=== PATIENT | male | born 1975 | race Hispanic/Latino ===

== ENCOUNTER 2016-09-09 19:24 | Inpatient (IN) | payer SELFPAY ==
[~2016-09-09] VITALS: Ht 162.6 cm; Wt 61.7 kg
[2016-09-09 19:29] VITALS: BP 124/85; PULSE 48; RESP 16; O2SAT 97
--- NOTE | 2016-09-09 20:55 | DRSVH ---
PROCEDURE: X-RAY CHEST ONE VIEW, PORTABLE ([id number]) INDICATIONS: CHEST PAIN TECHNIQUE: One view of the chest was acquired. COMPARISON: None. FINDINGS: Surgical changes and devices: None. Lungs and pleura: No pleural effusions or pneumothorax. Lungs are clear. Mediastinum: Mediastinal contours appear normal. Heart size is normal. Bones and chest wall: No suspicious bony lesions. Overlying soft tissues appear unremarkable. IMPRESSION: No acute pulmonary process. Dictated by: Nava Marrero M.D. on 09/09/2016 at 20:53 Approved by: Nava Marrero M.D. on 09/09/2016 at 20:53
--- NOTE | 2016-09-09 21:03 | ED.REPORT ---
HPI-Chest Pain 40 and Over Date of Service Sep 09, 2016 ED Provider: Jon Daly MD Pt is a generally healthy 40 y/o male presenting to the ED c/o intermittent SOB onset 3 days ago. The patient states he has been experiencing rapid irregular palpitations which have been persistent since 10:00 today which he describes as his heart beating 5 times quickly and then skipping a beat. During these episodes, he experiences shortness of breath and jaw pain. He experienced similar symptoms previously 1.5 months ago which spontaneously resolved after eating and resting. His only prior medical problem was a severe episode of epistaxis which occurred 20 years ago. He denies taking any prescription or OTC medications. Pt denies alcohol or drug use. Nursing Notes Stated Complaint: HEART PROBLEMS Chief Complaint: Chest Pain Nursing Notes Reviewed: Yes (pic5, meds not reconciled) Allergies: Coded Allergies: No Known Allergies (Unverified , 09/09/16) No Active Prescriptions or Reported Meds General Time Seen by MD: 21:02 Chief Complaint Shortness of breath Hx Obtained From: Patient, Certified Dental Assistant Arrived By: Walk-in Sudden in Onset?: No Onset Occurred: 3 days ago Symptom Duration: Intermittent Location: : Jaw Quality: Painful Severity: Current: Mild Severity: Maximum: Mild Similar Sx Previous: Yes Past Medical History Past Medical History Hx irregular palpitations Denies Past Surgical History Denies Smoking History Unknown if Ever Smoker Social History Alcohol Use: Denies alcohol use Drug Use: Denies drug use Ambulatory Status Independent Review of Systems Review of Systems Note: + jaw pain Constitutional: Denies: Chills, Fever Respiratory: Reports: Shortness of breath, Denies: Non-productive cough Cardiovascular: Reports: Palpitations, Denies: Chest pain GI: Denies: Abdominal pain, Nausea, Vomiting Complete sys rev & neg: except as marked. Physical Exam Initial Vital Signs Vital Signs (First) Date Time Temp Pulse Resp B/P Pulse Ox O2 Delivery O2 Flow Rate FiO2 09/09/16 19:29 36.5 48 16 124/85 97 Room Air 09/09/16 22:47 2 Initial VS: Reviewed, Vital signs normal Head / Eyes: Atraumatic, Normocephalic, PERRL ENT: Mucous membranes moist, Conjunctiva normal, No scleral icterus Neck: Supple, Full range of motion Extremities: Vascular intact, Neuro intact, No swelling Skin: Warm, Dry, No cyanosis Neurologic: Alert, Oriented, Nonfocal Psychiatric: Mood/affect normal, Behavior normal, Normal thought content General/Constitutional: Awake, Alert, Cooperative, Not toxic appearing Respiratory / Chest: Breath sounds NL, Breath sounds = bilat, No respiratory distress, No rales, No rhonchi, No wheezing Cardiovascular: Heart sounds NL, No gallop, No murmurs, No rubs, Cap refill not delayed, Peripheral circulation NL, Pulses = bilaterally Recurrent bouts of narrow complex tachycardia which do not cause near-syncope Abdomen: Atraumatic, Soft, Non-tender Interpretation & Diagnostics Lab Results Interpretation Result Diagram: 09/09/16 2100 09/09/16 2100 Test 09/09/16 21:00 White Blood Count 9.8th/mm3 (3.8-10.1) Red Blood Count 5.23mil/mm3 (4.40-5.80) Hemoglobin 16.2g/dL (13.8-17.2) Hematocrit 45.9% (41.0-50.0) Mean Corpuscular Volume 87.8fL (81-100) Mean Corpuscular Hemoglobin 31.0pg (27.0-35.0) Mean Corpuscular Hemoglobin Concent 35.3% (32.0-37.0) Red Cell Distribution Width 13.1% (12.3-15.4) Platelet Count 174bil/L (150-400) Neutrophils (%) (Auto) 70.5% (40-74) Lymphocytes (%) (Auto) 17.4% (14-46) Monocytes (%) (Auto) 9.9% (4-12) Eosinophils (%) (Auto) 1.7% (0-5) Basophils (%) (Auto) 0.4% (0-3) Sodium Level 140mEq/L (134-144) Potassium Level 3.8mEq/L (3.5-5.2) Chloride Level 104mEq/L (97-108) Carbon Dioxide Level 20mmol/L (18-29) Blood Urea Nitrogen 23mg/dL (6-24) Creatinine 0.90mg/dL (0.76-1.27) Estimat Glomerular Filtration Rate 99mL/min (>59) Glucose Level 107mg/dL (60-99) Calcium Level 9.0mg/dL (8.5-10.1) Magnesium Level 2.0mg/dL (1.6-2.6) Total Bilirubin 0.8mg/dL (0.0-1.2) Aspartate Amino Transf (AST/SGOT) 59U/L (0-50) Alanine Aminotransferase (ALT/SGPT) 50U/L (0-44) Alkaline Phosphatase 66U/L (25-150) Troponin T 0.010ug/L (0.0-0.011) Total Protein 7.4g/dL (6.4-8.4) Albumin 4.4g/dL (3.4-5.0) Thyroid Stimulating Hormone (TSH) 4.500uIU/mL (0.450-4.500) Hold Gomez Top Tube Received (Received) Lab Results Interpretation: CBC normal CMP normal TSH normal Troponin #1 negative ECG Interpretation ECG Interpretation: Underlying sinus rhythm with frequent episodes of narrow complex tachycardia, non-sustained, which appears to be atrial tachycardia at rate of 150 Also see rhythm strip which demonstrates dysrhythmias with more clarity. There also appears to be LVH with repolarization abnormality No prior EKG available for comparison Time: 20:37 Interpreted by: ED physician, Marketing Proposal Specialist Normal ECG Interpretation: No acute ischemic changes X-Ray Chest Interpretation Chest Xray Interpretation: IMPRESSION: No acute pulmonary process. Dictated by: Nava Marrero M.D. on 09/09/2016 at 20:53 Approved by: Nava Marrero M.D. on 09/09/2016 at 20:53 View: Portable, 1 view Interpretation / Wet Read by: Interpret - Radiologist Re-Eval/Medical Decision Med Decision/Clinical Course This= a 40-year-old male presents with a complaint of chest pain and palpitations. Denies previous medical history, is not on any medications, over- the-counter medications, and has no previous surgeries. He reports occasional alcohol, but denies smoking or recreational drugs, and reports that about a month and half ago he had a couple episodes of palpitations and chest discomfort , but then resolved-over the past 3 days they have returned with a vengeance. He has had continuous episodes of chest discomfort, severe palpitations and feels his heart skipping, he feels lightheaded. He denies shortness of breath, diaphoresis, nausea or vomiting. He has no previous history of DVT or PE, no leg swelling, and no DVT or PE risk factors. On arrival the patient's Continued have ongoing symptoms, and this matches frequent dysrhythmias identified on telemetry. He has bursts of narrow complex tachycardia at a rate of around 150, suspicious for an atrial tachycardia (?A flutter given HR 150) and the patient is quite symptomatic with this. I do not appreciate any murmurs, he has no jugular venous distention, no clinical exam findings of naida heart failure evident. He had several EKGs, and a lengthy rhythm strip-please see the rhythm strip visit demonstrates the recurrent nature of these bursts of tachycardia quite well. All these were reviewed with the manager security and safety Dr. Snow. Laboratories are normal with normal electrolytes, TSH as is the CXR. Patient received a dose of metoprolol, almost no effect. On discussion with cardiology who recommended transitioning to diltiazem for rate control- recommended admission, with a.m. cardiology consultation and and obtaining an echocardiogram. Source of Hx: Old records (none in EMR) Time of Eval: 22:12 Re-Evaluation/Progress Note: Pt rechecked. Informed pt of need for admission. Pt understands and agrees with plan for admission. All questions addressed. Time of Eval: 23:26 Re-Evaluation/Progress Note: Patient began to experience palpitations once again after a period of relief. Repeat EKG indicates sinus rhythm rate 77 with LVH with strain and then another bout of atrial tachycardia. Consultation #1: Referral / Consult Name: Guerrero Snow MD Consulted With: Cardiology Call Returned at: 22:04 Title Department Manager: Will see patient, Agrees with eval, Agrees with plan Note: Reviewed EKG. Recommends diltiazem if BP allows and admit. Consultation #2: Referral / Consult Name: Lindsay Bailey DO Consulted With: Hospitalist Call Returned at: 22:50 Title Department Manager: Will see patient, Agrees with eval, Agrees with plan, Accepts admit Differential Diagnosis: Positive: Dysrhythmia, Negative: Acute coronary syndrome, Acute myocardial infarct, Gun shot wound chest, Pleurisy, Pneumomediastinum, Pneumonia, Pneumothorax, Pulmonary edema, Pulmonary embolism, Rib fracture, Stab wound chest Counseled Regarding: Diagnosis, Lab results, Need for admission Discharge & Departure Primary Impression: Paroxysmal atrial tachycardia Additional Impression: LVH (left ventricular hypertrophy) Disposition: ADMITTED TO HOSPITAL Discharge Condition All VS Reviewed: Yes Condition: Stable Crit Care Except Billable Proc Time Spent: 30-74 minutes Services Performed: Patient management by me, Time spent at bedside, Reviewing test results, Reviewing imaging, Discussing patient care, Documentation in record Critical Care Notes: Management of recurrent tachydysrhythmia Dane Attestation Portions of this note were transcribed by Yousif Ramon. I, Dr. Daly, personally performed the history, physical exam and medical decision-making; I reviewed and confirmed the accuracy of the information in the transcribed note. Signed by Dane Landon, 09/09/162129 Jon Daly MD Sep 09, 2016 21:03 YOUSIF RAMON Sep 09, 2016 21:15
[2016-09-09 21:06] LABS: BASOPHILS % (AUTO) 0.4 % (0-3); EOSINOPHILS % (AUTO) 1.7 % (0-5); MONOCYTES % (AUTO) 9.9 % (4-12); Mean Corpuscular Volume 87.8 fL (81-100); NEUTROPHILS % (AUTO) 70.5 % (40-74); Platelet Count 174 bil/L (150-400)
[2016-09-09] MEDS ORDERED: MeTOProlol 1 mg/mL 5 mL Inj IVPUSH ONE (21:20)
[2016-09-09 21:25] VITALS: BP 124/77; PULSE 109; RESP 19; O2SAT 99
[2016-09-09 21:38] LABS: TROPONIN T 0.01 ug/L (0.0-0.011)
[2016-09-09] MEDS ORDERED: 0.9% Sodium Chloride 1,000 ML IV ONE (22:05)
[2016-09-09] MEDS ORDERED: Diltiazem 5 mg/mL 5 mL Inj IVPUSH ONE (22:25)
[2016-09-09 22:34] VITALS: BP 119/76; PULSE 110; RESP 29; O2SAT 95
[2016-09-09 22:47] VITALS: BP 106/68; PULSE 76; RESP 17; O2SAT 96
[2016-09-09] MEDS ORDERED: Ondansetron 2 mg/mL 2 mL Inj IVPUSH PRN (23:30)
[2016-09-09] MEDS ORDERED: Alum-Mag Hydrox-Simeth 30 mL Suspension PO PRN (23:30)
[2016-09-09 23:57] VITALS: BP 106/68; PULSE 76; RESP 17; O2SAT 96
[2016-09-10] VITALS (9 sets, daily range): BP systolic 91–143; BP diastolic 55–80; PULSE 64–107; RESP 16–24; O2SAT 93–99
--- NOTE | 2016-09-10 00:22 | NUR ---
Admit Pt admitted from ED at 0000. A/Ox4 and independent with transfers. Urine sample still needed.
--- NOTE | 2016-09-10 02:04 | PCM.HPMED ---
Subjective Date of Service Sep 10, 2016 Primary Provider: Admitting Physician: Lindsay Bailey DO Primary Care Physician: Ameya Attending Physician: Lindsay Bailey DO Admit Status: From the Emergency Department Chief Complaint: Heart racing History of Present Illness: Willie Cox is a 40-year-old Green[place]ic-speaking man who presents with to the ED with 3 days of heart racing and shortness of breath. Ipad customs investigator is used to obtain history. Patient states he had one prior episode of this approximately one month ago that resolved on its own after 3-4 hours. He anticipated that this episode would also resolve on its own, but as it has not resolved in the last 72 hours he was advised by his coworkers to present to the emergency department. Patient denies any trigger to this episode although he was working outside in the field when it started. He states he was still able to complete his tasks but felt more fatigued and short of breath. This episode is slightly different than his previous one a month ago in that he has less pain and tightness and instead feels warmer racing sensation. He states that the previous episode the pain radiated to his left jaw and was associated with nausea of which are absent currently. Patient denies any excessive caffeine use and drinks only a single cup of coffee in the morning. He has never smoked , used marijuana, or other recreational drugs. He occasionally will have a beer with a meal but not to any excess. No personal or family history of cardiac disease. Patient takes no medications including [id number] medications. He has never been hospitalized or had a prior echocardiogram. On presentation to the ED patient's vitals: temperature 36.5, pulse 109, respiratory rate 19 saturating 99% on room air, blood pressure 124/77. Initial labs including CBC with differential, CMP, TSH, and troponin were unremarkable. EKG revealed normal sinus rhythm with frequent episodes of narrow complex tachycardia. Patient was given metoprolol with no improvement but had some moderate relief with diltiazem which was recommended by Dr. Snow, talent engineer. Dr. Snow recommended an echocardiogram be obtained in the morning and also agreed to see the patient. Review of Systems: Comprehensive review of systems was conducted with the patient and found to be negative except as noted above in HPI. Allergies Coded Allergies: No Known Allergies (Unverified , 09/09/16) Home Medications None PMH None Surgical History None Family History Father and mother live in [place] and are healthy to the best of his knowledge. No family history of cardiac disease or cancer. Social History Occupation: field interviewer Hx Alcohol Use: Yes (occasionally) Hx Substance Use: No Hx Tobacco Use: No Smoking Status: Never Smoker Living Arrangement: with Family Exam Vital Signs Vital Sign - Last Date Time Temp Pulse Resp B/P Pulse Ox O2 Delivery O2 Flow Rate FiO2 09/10/16 00:08 37.2 81 16 135/80 93 Room Air 09/09/16 23:57 2 Exam General: No acute distress, well-developed, well-nourished, appropriately interactive HEENT: Normocephalic, atraumatic. External ears without defect. Pupils equal, round, and reactive to light and accommodation. Anicteric sclerae, moist conjunctivae, and no lid lag. Oropharynx free of erythema and cobble stoning with moist mucosa. Neck: Supple with full range of motion. No jugular venous distension. No bruits. No lymphadenopathy or thyromegaly. Cardiovascular: Regular rate and rhythm with no murmurs, rubs, or gallops appreciated Pulmonary: Clear to auscultation bilaterally with no crackles, wheezes, or rhonchi. Normal respiratory effort with no use of accessory muscles. Abdomen: Bowel tones present. Soft, nontender, nondistended. No hepatosplenomegaly or masses appreciated. Extremities: No clubbing, cyanosis, edema, or lymphadenopathy appreciated. Skin: Normal temperature, turgor, and texture; no rash, ulcers, or subcutaneous nodules appreciated. Neurological: Cranial nerves grossly intact. Normal muscle strength, tone, and bulk. Reflexes, coordination, and sensory function within normal limits. No known gait impairment. Psychiatric: Normal mood and affect. Alert and oriented to person, place, and time. Lab and Diagnostics Result Diagram: 09/09/16 2100 09/09/16 2100 X-Rays, CTs and MRIs X-RAY CHEST ONE VIEW, PORTABLE ([id number]) IMPRESSION: No acute pulmonary process. Dictated by: Nava Marrero M.D. on 09/09/2016 at 20:53 Approved by: Nava Marrero M.D. on 09/09/2016 at 20:53 12-lead ECG Interpretation by ED physician and talent engineer : Underlying sinus rhythm with frequent episodes of narrow complex tachycardia, non-sustained, which appears to be atrial tachycardia at rate of 150. No acute ischemic changes. Also see rhythm strip which demonstrates dysrhythmias with more clarity. There also appears to be LVH with repolarization abnormality. No prior EKG available for comparison. Assessment & Plan Willie Cox is a 40-year-old [place]ic-speaking man who presents with to the ED with 3 days of heart racing and shortness of breath. Admitted for further cardiac workup. Narrow complex tachycardia possibly atrial flutter, present on admission, active. Scrap Preparer, Dr. Snow, reviewed several EKGs and a lengthy rhythm strip with the ER physician, Dr. Daly. Dr. Snow recommends diltiazem as needed, echocardiogram, and agrees to see the patient in the morning. - Diltiazem 60 mg PO along with 20 mg IV push given in the ED. - Diltiazem 20 mg IV push for sustained tachycardia. - Metoprolol given initially with no effect. - Echocardiogram ordered for the morning. - Monitor showing continuous telemetry. - Cardiology consulted. Appreciate time and recommendations. Aminotransferase elevation, present on admission, unknown chronicity. Patient denies any history of hepatitis or other liver pathology. Patient does admit to drinking alcohol socially would not in excess. - Repeat CMP in the morning. - Possible need for outpatient workup. PRN Medications - Bowel regimen as needed - Antiemetic as needed Patient is admitted under inpatient status with expected length of stay greater than 2 midnights due to severity of presenting symptoms, risk of adverse event, and complexity of treatment plan. Pain Evaluation: Adequate Pain Control GI Prophylaxis: Not indicated VTE Prophylaxis: Sub-Q Heparin (Unfractionated), SCDs Resuscitation Status: CPR: Attempt Resuscitation Attending Statement The patient was seen and examined together with house staff on 09/10/2016 and I agree with the history, exam and plan as outlined in the note above. CONCEPCIÓN BRIDGES DO Sep 10, 2016 02:04 Lindsay aBiley DO Sep 10, 2016 05:37
[2016-09-10 02:05] LABS: APPEARANCE,URINE CLEAR (CLEAR,HAZY); COLOR,URINE YELLOW (YELLOW); OCCULT BLOOD,URINE NEGATIVE (NEGATIVE); PH,URINE 6.5 (5.0-8.0); UROBILINOGEN,URINE NORMAL (NORMAL)
[2016-09-10] MEDS ORDERED: Alum-Mag Hydrox-Simeth 30 mL Suspension PO PRN (02:10)
[2016-09-10] MEDS ORDERED: Ondansetron 2 mg/mL 2 mL Inj IVPUSH PRN (02:10)
[2016-09-10] MEDS ORDERED: Polyethylene Glycol (PEG) 17 Gm Powder PO PRN (02:10)
[2016-09-10 06:12] LABS: TROPONIN T 0.01 ug/L (0.0-0.011)
--- NOTE | 2016-09-10 06:36 | NUR ---
A/Ox4, makes needs known. Reports 2/10 chest pressure, tolerable per pt. Underlying sinus rhythm with atrial tach/flutter and 1 4 sec run of SVT, R 80-130. Provider notified. Continent of b/b using bedside urinal, last BM 09/09 in AM per pt. Maintains 99% on 2L NC, LS coarse posteriorly, dry cough present. SL in L AC asymptomatic, flushes without resistance. Care continues.
[2016-09-10] MEDS: Heparin 5,000 Unit/mL Inj SUBQ SCH ×3 (08:15→23:49)
[2016-09-10] MEDS ORDERED: Diltiazem CD 120 mg ER24 Capsule PO SCH (11:35)
--- NOTE | 2016-09-10 15:58 | DRSVH ---
[facility] [address] [place] [address] Echocardiogram Report Name: SULAIMAN CAREY Study Date: 09/10/2016 Height: 64 in Hospital Exam Location: [facility] Weight: 140 lb Gender: Male BSA: 1.7 m2 : 1975 Age: 40 yrs BP: 143/70 m mHg Reason For Study: Arrhythmia Ordering Physician: Performed By: Elizabeth Gallardo Referring Physician: Guerrero Snow Interpretation Summary 1) Moderately dilated left ventricle with mildly to moderately reduced systolic function (EF 40-45%). 2) Normal right ventricular size and function. 3) Severely dilated left atrium. 4) Posterior leaflet of the mitral valve is tethered and has very limited mobility. 5) Severe posteriorly directed mitral regurgitation appears to be present. 6) Aortic valve morphology not well seen but moderate eccentric aortic regurgitation is presentk. 7) No prior Echo available for comparison. Procedure: A two-dimensional transthoracic echocardiogram with color flow and Doppler was performed. The study quality was technically good. There is no prior echocardiogram noted for this patient. The heart rate ranged between 72-74 bpm during the study. Left Ventricle: The left ventricle is moderately dilated. There is normal left ventricular wall thickness. The ejection fraction is estimated to be 40- 45%. Left ventricular systolic function is mild to moderately reduced. There is mild to moderate global hypokinesis of the left ventricle. Assessment of diastolic parameters indicates normal left ventricular diastolic function and normal filling pressures. Right Ventricle: The right ventricle is normal in size and function. Atria: The left atrium is severely dilated. Right atrial size is normal. The interatrial septum is intact with no evidence for an atrial septal defect. Mitral Valve: Posterior leaflet tethered. There is severe mitral regurgitation. Aortic Valve: The aortic valve opens well. Aortic valve morphology not well seen. There is no aortic valve stenosis. There is moderate aortic regurgitation. Tricuspid Valve: The tricuspid valve leaflets are thin and pliable. There is trace tricuspid regurgitation. The right ventricular systolic pressure is estimated at 29 mmHg assuming a right atrial pressure of 3 mm Hg. Pulmonic Valve: The pulmonic valve is normal in structure and function. There is no pulmonic valvular regurgitation. Great Vessels: The aortic root is normal size. The dimensions of the ascending aorta are normal. The IVC is of normal diameter and collapses greater than 50% with a sniff. This suggests a low right atrial pressure of 3 mm Hg. Pericardium/ Pleura There is no pericardial effusion. There is no pleural effusion. MMode/2D Measurements & Calculations LVIDd: 6.9 cm LA dimension: 5.2 cm RA long axis: 4.9 cm Ao root diam LVIDs: 4.9 cm FS: 28.7 % LA A2 area: 39.8 cm RA area: 16.2 cm Aortic Jxn: 2.7 cm EPSS: 1.7 cm LA A4 area: 47.1 cm RA vol: 45.8 ml asc Aorta Diam IVSd: 0.95 cm LA length (vol) RA : 27.3 ml/m LVPWd: 0.95 cm RVDd major: 5.4 cm Ao Arch Diam (Prox LA vol: 239.0 ml Trans): 3.0 cm LA vol index : 142.2 ml/m2 IVC diam: 0.97 cm EDV(MOD-sp2) LV rowland. diameter/BSA LV sys. diameter/BSA RVD1 (basal) (cm/m^2): 4.1 (cm/m^2): 2.9 : 3.3 cm ESV(MOD-sp2) EF(MOD-sp2) RVD2 (mid) : 2.4 cm Doppler Measurements & Calculations Ao V2 max MV E max kulwinder MV E/A: 2.0 TR max kulwinder : 188.2 cm/sec : 158.7 cm/sec Med Peak E' Kulwinder : 255.6 cm/sec Ao max PG MV A max kulwinder TR max PG : 14.2 mmHg : 80.4 cm/sec E/E' med: 23.2 : 26.1 mmHg Ao mean PG MV P1/2t: 74.4 msec Lat Peak E' Kulwinder PA V2 max : 82.8 cm/sec AI P1/2t MR ERO: 0.52 cm2 E/E' lat: 19.1 PA mean PG : 352.9 msec E/e' average AI dec slope PA Accel Time MV A dur: 0.12 sec : 0.11 sec : 378.9 cm/s2c MV dec time MV P1/2t max kulwinder Ao V2 mean MR flow rate : 0.25 sec : 122.2 cm/sec : 261.6 cm3/sec MVA(P1/2t): 3.0 cm2 Ao V2 VTI: 38.6 cm MR PISA radius PA V2 mean : 53.3 cm/sec Reading Physician:03:57 PM
--- NOTE | 2016-09-10 18:11 | NUR ---
Cardiac pt continued to have runs of VT in short bursts to about 140s. pt aware of palpitations. MD informed of increased frequency. New med orders received and started. cardiac rhythms stabilizing as of late. will continue to monitor.
--- NOTE | 2016-09-10 20:40 | PCM.PNMED ---
Subjective Date of Service Sep 10, 2016 Cb Cox is a 40-year-old [place] Islander-speaking gentleman with, no known past medical history, who presented to the ED with 3 days of heart racing and shortness of breath found to have frequent narrow complex tachycardia on EKG. Treatment was started with metoprolol in the ED with no relief, but cardizem did help. He converted back into normal sinus rhythm and was admitted to the hospital. Today, he is resting in bed comfortably and in no acute distress. language interpreter was used to discuss his symptoms. He mentions feeling good today. He denies any chest pain, shortness of breath, dizziness, headache, nausea, vomiting, abdominal pain. Exam Vital Signs Vital Sign - Last Date Time Temp Pulse Resp B/P Pulse Ox O2 Delivery O2 Flow Rate FiO2 09/10/16 04:20 37.2 81 20 143/70 96 Room Air 09/09/16 23:57 2 Intake and Output 09/09/16 09/09/16 09/10/16 Cumulative From/Thru 15:00 23:00 07:00 09/09/16 19:29 - 09/10/16 05:35 Intake Total 20 ml 20 ml Balance 20 ml 20 ml Intake IV Total 20 ml 20 ml Exam General: No acute distress, well-developed, well-nourished, appropriately interactive HEENT: Normocephalic, atraumatic. External ears without defect. Anicteric sclerae, moist conjunctivae. Neck: Supple with full range of motion. No jugular venous distension. No bruits. No lymphadenopathy or thyromegaly. Cardiovascular: Regular rate and rhythm with significant blowing systolic murmur , No rubs or gallops appreciated Pulmonary: Clear to auscultation bilaterally with no crackles, wheezes, or rhonchi. Normal respiratory effort with no use of accessory muscles. Abdomen: Bowel tones present. Soft, nontender, nondistended. Extremities: No clubbing, cyanosis, edema, or lymphadenopathy appreciated. Skin: Normal temperature, turgor, and texture; no rash, ulcers, or subcutaneous nodules appreciated. Neurological: Cranial nerves grossly intact. Normal muscle strength, tone, and bulk. Reflexes, coordination, and sensory function within normal limits. Psychiatric: Normal mood and affect. Alert and oriented to person, place, and time. IVs and Medications Medications Reviewed: Medications were reviewed in detail Lab and Diagnostics Result Diagram: 09/09/16209909/09/162099 X-Rays, CTs and MRIs X-RAY CHEST ONE VIEW, PORTABLE ([id number]) IMPRESSION: No acute pulmonary process. Dictated by: Nava Marrero M.D. on 09/09/2016 at 20:53 Approved by: Nava Marrero M.D. on 09/09/2016 at 20:53 12-lead ECG Interpretation by ED physician and energy trader : Underlying sinus rhythm with frequent episodes of narrow complex tachycardia, non-sustained, which appears to be atrial tachycardia at rate of 150. No acute ischemic changes. Also see rhythm strip which demonstrates dysrhythmias with more clarity. There also appears to be LVH with repolarization abnormality. No prior EKG available for comparison. Assessment & Plan Willie Cox is a 40-year-old [place] Islander-speaking man who presents with to the ED with 3 days of heart racing and shortness of breath. He is admitted for further cardiac workup. Narrow complex tachycardia possibly atrial flutter, present on admission, active. Skills Trainer, Dr. Snow, reviewed several EKGs and a lengthy rhythm strip with the ER physician, Dr. Daly. Dr. Snow recommends diltiazem as needed, echocardiogram, and agrees to see the patient in the morning. - Diltiazem 60 mg PO along with 20 mg IV push given in the ED. Diltiazem 20 mg IV push for sustained tachycardia. Metoprolol given initially with no effect. - Echocardiogram scheduled for today - Monitor on telemetry. - Cardiology consulted. Dr. Cervantes recommends Atenolol 25 mg daily and teaching patient about vagal maneuvers including carotid sinus massage, taking a deep breath and holding and bearing down for 15 seconds and finally cold water. Aminotransferase elevation, present on admission, unknown chronicity, resolved Patient denies any history of hepatitis or other liver pathology. Patient does admit to drinking alcohol socially but not in excess. - Possible need for outpatient workup. Disposition: Likely discharge tomorrow depending on patient rhythm overnight. GI Prophylaxis: Not indicated VTE Prophylaxis: Sub-Q Heparin (Unfractionated), SCDs Resuscitation Status: CPR: Attempt Resuscitation Attending Statement The patient was seen and examined together with Dr. Anthony on 09/10/16 and I have added additional information to the note above. Vic Anthony DO Sep 10, 2016 06:13 Tessie Antoine DO Sep 13, 2016 15:23
[2016-09-11] VITALS (7 sets, daily range): BP systolic 110–121; BP diastolic 53–71; PULSE 59–73; RESP 14–18; O2SAT 94–98
--- NOTE | 2016-09-11 05:42 | NUR ---
Cardiac Underlying sinus rhythm with runs of PSVT. Pt denies chest pain/discomfort this shift. OOB to bathroom independently, VS WNL. Poor appetite this shift, pt ate food brought from home by family. Slept off and on.
[2016-09-11] MEDS: Heparin 5,000 Unit/mL Inj SUBQ SCH ×3 (09:31→23:44)
--- NOTE | 2016-09-11 10:03 | PCM.PNMED ---
Subjective Date of Service Sep 11, 2016 Cb Cox is a 40-year-old Congolese-speaking gentleman with, no known past medical history, who presented to the ED with 3 days of heart racing and shortness of breath found to have frequent narrow complex tachycardia on EKG. Treatment was started with metoprolol in the ED with no relief, but cardizem did help. He converted back into normal sinus rhythm and was admitted to the hospital. Overnight: On telemetry he had PVC's occuring every few minutes and a 5 second episode of SVT. Today, he is resting in bed comfortably and in no acute distress. interpreter and translator was used to discuss his symptoms. He mentions feeling good today. He denies any chest pain, shortness of breath, dizziness, headache, nausea, vomiting, abdominal pain. Exam Vital Signs Vital Sign - Last Date Time Temp Pulse Resp B/P Pulse Ox O2 Delivery O2 Flow Rate FiO2 09/11/16 09:20 36.6 70 18 121/71 96 Room Air 09/09/16 23:57 2 Intake and Output 09/10/16 09/10/16 09/11/16 Cumulative From/Thru 15:00 23:00 07:00 09/09/16 19:29 - 09/11/16 05:52 Intake Total 440 ml 20 ml 580 ml Output Total 600 ml 1200 ml Balance -160 ml 20 ml -620 ml Intake Oral 440 ml 540 ml IV Total 20 ml 40 ml Output Urine Total 600 ml 1200 ml Exam General: No acute distress, well-developed, well-nourished, appropriately interactive HEENT: Normocephalic, atraumatic. External ears without defect. Anicteric sclerae, moist conjunctivae. Neck: Supple with full range of motion. No jugular venous distension. No bruits. No lymphadenopathy or thyromegaly. Cardiovascular: Regular rate and rhythm with significant systolic murmur heard best at the apex Pulmonary: Clear to auscultation bilaterally with no crackles, wheezes, or rhonchi. Normal respiratory effort with no use of accessory muscles. Abdomen: Bowel tones present. Soft, nontender, nondistended. Extremities: No clubbing, cyanosis, edema, or lymphadenopathy appreciated. Skin: Normal temperature, turgor, and texture; no rash, ulcers, or subcutaneous nodules appreciated. Neurological: Cranial nerves grossly intact. Normal muscle strength, tone, and bulk. Reflexes, coordination, and sensory function within normal limits. Psychiatric: Normal mood and affect. Alert and oriented to person, place, and time. Lab and Diagnostics Result Diagram: 09/11/1640409/11/16404 X-Rays, CTs and MRIs X-RAY CHEST ONE VIEW, PORTABLE ([id number]) IMPRESSION: No acute pulmonary process. Dictated by: Nava Marrero M.D. on 09/09/2016 at 20:53 Approved by: Nava Marrero M.D. on 09/09/2016 at 20:53 12-lead ECG Interpretation by ED physician and commercial instructor supervisor : Underlying sinus rhythm with frequent episodes of narrow complex tachycardia, non-sustained, which appears to be atrial tachycardia at rate of 150. No acute ischemic changes. Also see rhythm strip which demonstrates dysrhythmias with more clarity. There also appears to be LVH with repolarization abnormality. No prior EKG available for comparison. Cardiac Echo Impressions Interpretation Summary 1) Moderately dilated left ventricle with mildly to moderately reduced systolic function (EF 40-45%). 2) Normal right ventricular size and function. 3) Severely dilated left atrium. 4) Posterior leaflet of the mitral valve is tethered and has very limited mobility. 5) Severe posteriorly directed mitral regurgitation appears to be present. 6) Aortic valve morphology not well seen but moderate eccentric aortic regurgitation is presentk. 7) No prior Echo available for comparison. Assessment & Plan Willie Cox is a 40-year-old [place]olese-speaking man who presents with to the ED with 3 days of heart racing and shortness of breath. He is admitted for further cardiac workup and management of his arrhythmia. Narrow complex tachycardia possibly atrial flutter, present on admission, Improved. Lidder, Dr. nSow, reviewed several EKGs and a lengthy rhythm strip with the ER physician, Dr. Daly. Dr. Snow recommends diltiazem as needed, echocardiogram, and agrees to see the patient in the morning. - Echocardiogram results as above - Monitor on telemetry. - Cardiology consulted, Their recommendation was to switch from diltiazem to metoprolol succinate 50 mg BID and lisinopril 2.5 mg daily. However, the patient does have financial concerns. As metoprolol succinate is not on the $4 Retidoc list and Metoprolol Tartrate is, per discussion with cardiology , it was agreed that he can use metoprolol tartrate 50 mg BID instead. (Case was discussed with Dr. Cervantes with cardiology today) - Patient has follow up appointments scheduled with Dr. Napoles September 19 at 2 PM at the [facility], and with cardiology, Dr. Beltran, September 27 at 11 AM. - Upon discharge, it's important that if patient starts to have palpitations while working, he should immediately rest for 15-20 minutes. He should also stay hydrated and drink plenty of water. Aminotransferase elevation, present on admission, unknown chronicity, resolved Patient denies any history of hepatitis or other liver pathology. Patient does admit to drinking alcohol socially would not in excess. - Possible need for outpatient workup. Disposition: Likely discharge tomorrow depending on patient heart rhythm and clinical status. We will assess how effective metoprolol tartrate 50 mg BID and lisinopril 2.5 mg daily is. GI Prophylaxis: Not indicated VTE Prophylaxis: Sub-Q Heparin (Unfractionated), SCDs Resuscitation Status: CPR: Attempt Resuscitation Attending Statement The patient was seen and examined together with Dr. Anthony on 09/11/16 and I have added additional information to the note above. Vic Anthony DO Sep 11, 2016 10:03 Tessie Antoine DO Sep 11, 2016 18:51
[2016-09-11] MEDS ORDERED: Diltiazem CD 120 mg ER24 Capsule PO ONE (10:05)
--- NOTE | 2016-09-11 13:42 | CONS ---
[address] [address] CONSULTATION REPORT PATIENT: SULAIMAN CAREY : 1975 MR#: [id number] ADMIT: 09/09/2016 JOB ID: [id number] DATE OF SERVICE: 09/11/2016 REQUESTING PHYSICIAN: MD Raj REASON FOR EVALUATION: Palpitations. I saw and examined the patient. Please see Logan Mays PA-C's notes for detail. IMPRESSION: 1. Palpitations due to paroxysmal supraventricular tachycardia. 2. Moderately dilated left ventricle with ejection fraction 40% to 45%. 3. Severe mitral regurgitation. PLAN: The patient will be treated with metoprolol succinate 50 mg p.o. b.i.d. for paroxysmal supraventricular tachycardia. I will arrange for the patient to see Dr. Snow as an outpatient for consideration of electrophysiologic study and radiofrequency ablation. Further investigation regarding cardiomyopathy and severe mitral regurgitation could be done as an outpatient. I suspect that he may have longstanding severe mitral regurgitation as the cause of his dilated left ventricle and dilated left atrium with depressed left ventricular systolic function. UT[facility] PSYCHIATRIC CENTERJossie
--- NOTE | 2016-09-11 13:49 | CONS ---
[address] [address] CARDIOLOGY INPATIENT CONSULTATION REPORT PATIENT: SULAIMAN CAREY : 1975 MR#: [id number] ADMIT: 09/09/2016 JOB ID: [id number] DATE OF SERVICE: 09/11/2016 CARDIOLOGY CONSULTATION: REASON OF CONSULTATION: SVT. HISTORY OF PRESENT ILLNESS: This is a very pleasant 40-year-old Amharic-speaking gentleman with whom I communicated through electronics computer mechanic. He presented to the ED at [facility] on September 09, 2016 with difficulty breathing, shortness of breath/dyspnea on exertion, chest discomfort, palpitations in the setting of episodes of SVT. 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 He felt that it was irregular palpitation. Also felt lightheaded and dizzy, and he told me that if he had continued working, he would have passed out but he never passed out. Also, he had a chest discomfort on left side of his chest radiating to his neck and to his throat and to his both arms. The chest discomfort actually had a pleuritic component, was aggravated with deep breathing but not with walking. He tells me that these all symptoms lasted about 6 hours and spontaneously dissipated. So, once his palpitation was gone, all symptoms were gone. 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 Symptoms this time did not dissipate at all and they lasted on and off, waxing and waning until he was brought to [facility] on September 09, 2016. On admission, he was found to have episodes of SVT (supraventricular tachycardia) with heart rate up to 150 beats per minute. He was given metoprolol 5 mg IV which did not help. He was given diltiazem IV and then was started diltiazem p.o. and currently he is on diltiazem 120 mg b.i.d. and his symptoms improved. On admission his blood pressure was 124/85. Labs were unremarkable. He was not anemic, had normal kidney function and electrolytes and his troponins were negative. He had an echo done on September 10, 2016 which showed moderately dilated ventricle with mild to moderately reduced systolic function with ejection fraction 40%-45%. Also he had severely dilated left atrium, severe posteriorly directed mitral regurgitation and moderate aortic regurgitation. Right ventricular systolic pressure was 29 mmHg and he had a normal central venous pressure of 3 mmHg. The patient tells me that before all of these symptoms happened 1.5 month agao, he never had any health issues and never took any medications on a daily basis. He always was healthy and never had any chest discomfort or difficulty breathing. He has not bee have any symptoms of nocturnal pulmonary congestion. He denies history of coronary artery disease, hypertension or hyperlipidemia. He has a remote very short history of tobacco smoking and he did not smoke much. He drinks one can of beer twice a week and he denies recreational drug use. FAMILY HISTORY: Denies family history of coronary artery disease. REVIEW OF SYSTEMS: A 12-point review of systems are negative except the ones mentioned in HPI. PAST MEDICAL HISTORY: None. SURGICAL HISTORY: None. PHYSICAL EXAMINATION: Vital signs: Temperature 36.8, pulse 60, respiratory rate 18, blood pressure 113/53, saturation 95% on room air. Examination: General: No acute distress. Lying comfortably in the bed. Speaking full sentences, compliant. HEENT: Normocephalic, atraumatic. Mucous membranes moist. Sclerae anicteric. Neck: Supple. No thyromegaly. Cardiovascular: Irregular rhythm. Diastolic murmur on the base, 1/6, systolic murmur on PMI 2/6. JVP is not elevated. Good breathing efforts, normal breathing sounds laterally. Slight basilar crackles on the left. Extremities: No lower extremity edema. Abdomen: Soft, nontender with palpation. The skin warm and dry. No rash. Neuro: Alert and oriented x3. No gross abnormalities. Labs from September 11, 2016 white blood cells 8.8, red blood cells 5.09, hemoglobin 15.8, hematocrit 45.3, platelets 164. Sodium 141, potassium 4.7, chloride 106, carbon dioxide 23, BUN 27, creatinine 1, glucose 99, calcium 9. Magnesium on September 09, 2016 was 2. Now total bilirubin 0.9, AST 26, ALT 32. On admission on September 09 he had a slightly elevated AST, ALT, currently normalized. Then alkaline phosphatase 59. Total protein 6.3, TSH was normal. On admission it was 4.5. Chest x-ray from September 09, 2016 showed no acute pulmonary process. Echo from September 10, 2016 was read moderately dilated left ventricle with mildly to moderately reduced systolic function with LVEF 40%-45%. Normal right ventricular size and function. Severely dilated left atrium. The posterior leaflet of the mitral valve is tethered and has very limited mobility. Severe posteriorly directed mitral regurgitation appears to be present. Aortic valve morphology is not well seen but moderate eccentric aortic regurgitation is present. No prior echo available for comparison. Her right ventricular systolic pressure 29 mmHg and suggested a right atrial pressure is 3.3 mmHg. ASSESSMENT AND PLAN: This is a very pleasant 40-year-old gentleman Amharic speaking with no prior history of coronary artery disease or any heart issues who was admitted on September 09, 2016 with dyspnea on exertion, shortness of breath, palpitations, chest discomfort in the setting of episodes of nonsustained narrow complex tachycardia- SVT with heart rate up to 150s with a first episode which he experienced one month and half ago. Currently he is on diltiazem 120 mg b.i.d. and his symptoms improved although periodically per telemetry he continues having episodes of paroxysmal SVT. #Narrow complex tachycardia, SVT, paroxysmal - with heart rate up to 150s per telemetry. Per telemetry, he is in sinus rhythm with frequent PVCs with episodes of paroxysmal SVT with heart rate up to 150s, which he had again today early in the morning at 7 a.m. and at midnight. Those episodes are nonsustained. Generally his heart rate has been in 70s-80s beats per minute. As mentioned above, her echo has a moderately dilated left ventricle and mild to moderately reduced systolic function with the ejection fraction of 40%-45%, which is a pretty low for him, taking in mind that he has a severe mitral regurgitation. Because of his cardiomyopathy, which we suspect is valvular in origin and also likely tachycardia mediated, it would be better to switch patient from diltiazem which has a negative inotropic effect to metoprolol succinate and start with 50 mg b.i.d. Taking in mind that he has severe mitral regurgitation and severe aortic regurgitation, it would be a good idea to start him on afterload reduction and start with lisinopril 2.5 mg daily. Both medications, metoprolol and lisinopril, could be up titrated depending on heart rate and blood pressure respectively. When discharged, he will need both medications, metoprolol succinate 50 mg b.i.d. and lisinopril 2.5 mg and followup with Cardiology Clinic for further management. He will need eventually cardiology gas pipe layer consultation for potential SVT ablation. These can be addressed as an outpatient. Also, because the patient is started on lisinopril, he will need a BMP done in one week to make sure that his kidney function is fine. This case was discussed with speaker mounter, Dr. Wall, who agreed with assessment and plan. SWAPNIL
--- NOTE | 2016-09-11 16:15 | NUR ---
Social Work Note: Screen Note/Multidisciplinary Rounds Data& Assessment:EMR reviewed. Pt was discussed in AM Rounds, cardiology following. Per MD pt is not medically ready for discharge at this time and MD is overseeing medication changes. SW to follow up to provide a senior financial application. Willie Cox is a 40 year old male admitted on 09/09/2016 for symptomatic atrial tachycardia. Pt does not have insurance and MD plans to prescribe medications in alignment with [employer] $4 medication program when possible. Pt lives in [place] with family and is independent at baseline. No other MD orders identified at this time. SW to continue to follow. Plan: Anticipated discharge home when medically ready. SW to follow up to provide a senior financial application. No other MD orders identified at this time. SW to continue to follow. NELLY Curry
[2016-09-11] MEDS ORDERED: Diltiazem CD 120 mg ER24 Capsule PO SCH (20:30)
[2016-09-11] MEDS ORDERED: MeTOProlol XL 50 mg ER24 Tablet PO SCH (20:30)
[2016-09-12] VITALS (7 sets, daily range): BP systolic 102–127; BP diastolic 67–77; PULSE 63–150; RESP 16–22; O2SAT 96–99
--- NOTE | 2016-09-12 05:29 | NUR ---
Cardiac Consistent runs of PSVT/PVCs every few minutes with underlying sinus rhythm. Rate 60's-70's after administration of metoprolol/lisinopril. Pt reports occasional sensation of palpitations. Maintains 96% on room air, denies chest pain. Care continues.
--- NOTE | 2016-09-12 06:57 | PCM.DIMED ---
Catracho Anthonyik Madan JAMES 09/12/16 0657: Discharge Instructions Date of Service Sep 12, 2016 Dates of Hospitalization Sep 09, 2016 at 22:58 Discharge Diagnosis Discharge Diagnosis Narrow complex tachycardia possibly atrial flutter Aminotransferase elevation Medication Instructions Additional med instructions New Medications Diltiazem ER 120 mg twice per day until reviewed by your regional cra Lisinopril 5 mg once per day until reviewed by your regional cra Diet Discharge Diet: No restrictions Activity Discharge Activity: No restrictions Call your provider Call your provider for: Fever or Chills, Shortness of breath, Chest pain, Weakness (unilateral) Patient Instructions Patient Instructions New Medications Diltiazem ER 120 mg twice per day until reviewed by your regional cra Lisinopril 5 mg once per day until reviewed by your regional cra Follow up appointments have been scheduled Primary Care Physician: Dr. Napoles September 19 at 2 PM at the [facility] Cardiology, Dr. Beltran, September 27 at 11 AM. You will need to get your blood drawn by Dr. Yesika baird BMP to make sure kidney is fine on new medications If you start to have palpitations or feel like your heart is racing while working, you should immediately rest for 15-20 minutes. Also try to stay hydrated and drink plenty of water. Try and avoid spicy foods. Follow-up Provider: Marcello Napoles DO Follow-up with PCP in: 1 week (September 19 at 2 PM) Provider: Ivan Beltran MD Follow-up in: 2 weeks (September 27 at 11 AM) Tessie Antoine DO 09/13/16 1503: Discharge Instructions Medication Instructions Additional med instructions Diltiazem and Cardizem are the same medication just under a different name Diltiazem y Cardizem son medicamentos iguales. Aveces usa el nombre Diltiazem y otras veces usas el nombre Cardizem greg son excatamente lo mismo medicamento. Activity Discharge Activity: Other (If you feel any heart pains or palpiations then please rest for 15min if the pain or palpiations do not become less then please return to the hospital immediately. Si sientas dolor en el pecho o palpitaciones porfavor blossom un descanzo por 15 minutos. Si el dolor o palpitaciones continua porfavor regresa a la mikel de emeregencia inmediatamente) Attending's Statement The patient was seen and examined together with Dr. Anthony on 09/13/16 and I have added additional information to the note above. Vic Anthony DO Sep 12, 2016 06:57 Tessie Antoine DO Sep 13, 2016 15:03
[2016-09-12] MEDS ORDERED: LISI-571 PO (06:58)
[2016-09-12] MEDS ORDERED: METO50TA3 PO (06:58)
[2016-09-12] MEDS: Heparin 5,000 Unit/mL Inj SUBQ SCH ×2 (08:57→18:30)
[2016-09-12] MEDS ORDERED: Adenosine 3 mg/mL 2 mL Inj IVPUSH ONE ×2 (14:00)
--- NOTE | 2016-09-12 14:27 | NUR ---
Cardiac Telemetry notified RN of increasing runs of PSVT. Runs lasting up to 12s, with underlying SR. notified. An additional dose of 25mg PO Metoprolol was ordered and administered. Within 15-20 minutes of administration, Telemetry notified RN that pt PSVT had become sustained at a rate of 145-150. Pt c/o increasing palpitations in his chest, no other symptoms. notified. A stat EKG was ordered, as well as 2 doses of Adenosine (6mg, 12mg). Pt was connected to MP30. While EKG was being completed pt converted back to SR with occasional PVCs. Addendum: 09/12/16 at 1929 by DESHAUN TOWNSEND RN 1840 Telemetry notified RN that pt's rate had increased again to 130-160. notified, one time dose of 5mg Lisinopril was ordered. Report given to oncoming cnc machinist 2nd shift RN. Care continues
[2016-09-12] MEDS: Diltiazem CD 120 mg ER24 Capsule PO SCH ×2 (15:58→20:00)
--- NOTE | 2016-09-12 16:09 | NUR ---
Social Work: Multidisciplinary Rounds Pt discussed in am rounds. Pt is not medically stable for discharge. Sw status remains unchanged; anticipate d/c home when medically stable. JAWBONE PULLER to continue to follow. Lashae Downey MSW
--- NOTE | 2016-09-12 18:09 | PCM.PNMED ---
Subjective Date of Service Sep 12, 2016 Subjective Overnight Events: None Today, he is resting in bed comfortably and in no acute distress. teaching specialists was used to discuss his symptoms. He is still feeling good today. He mentions last night after having some tamales that he felt some palpitations that gradually improved and went away after 5 hours. Other than that he denies any chest pain, shortness of breath, dizziness, nausea, vomiting, abdominal pain. Later in the afternoon, he developed SVT bursts that was increasing in frequency and lasting up to 12 seconds. Metoprolol 25 mg was given and adenosine was drawn up in case. Fortunately, it was not needed. It was recommended by Dr. Snow to switch back to diltiazem. Exam Vital Signs Vital Sign - Last Date Time Temp Pulse Resp B/P Pulse Ox O2 Delivery O2 Flow Rate FiO2 09/12/16 16:22 36.5 79 22 102/69 99 Room Air 09/09/16 23:57 2 Intake and Output 09/11/16 09/11/16 09/12/16 Cumulative From/Thru 15:00 23:00 07:00 09/09/16 19:29 - 09/12/16 06:20 Intake Total 400 ml 420 ml 350 ml 1750 ml Output Total 1200 ml Balance 400 ml 420 ml 350 ml 550 ml Intake Oral 400 ml 420 ml 350 ml 1710 ml IV Total 40 ml Output Urine Total 1200 ml # Voids 1 2 3 6 Exam General: No acute distress, well-developed, well-nourished, appropriately interactive HEENT: Normocephalic, atraumatic. External ears without defect. Anicteric sclerae, moist conjunctivae. Neck: Supple with full range of motion. No jugular venous distension. No bruits. No lymphadenopathy or thyromegaly. Cardiovascular: Regular rate and rhythm with significant blowing systolic murmur heard best at the apex Pulmonary: Clear to auscultation bilaterally with no crackles, wheezes, or rhonchi. Normal respiratory effort with no use of accessory muscles. Abdomen: Bowel tones present. Soft, nontender, nondistended. Extremities: No clubbing, cyanosis, edema, or lymphadenopathy appreciated. Skin: Normal temperature, turgor, and texture; no rash, ulcers, or subcutaneous nodules appreciated. Neurological: Cranial nerves grossly intact. Normal muscle strength, tone, and bulk. Reflexes, coordination, and sensory function within normal limits. Psychiatric: Normal mood and affect. Alert and oriented to person, place, and time. IVs and Medications Medications Reviewed: Medications were reviewed in detail Lab and Diagnostics Result Diagram: 09/11/1640409/11/16404 X-Rays, CTs and MRIs X-RAY CHEST ONE VIEW, PORTABLE ([id number]) IMPRESSION: No acute pulmonary process. Dictated by: Nava Marrero M.D. on 09/09/2016 at 20:53 Approved by: Nava Marrero M.D. on 09/09/2016 at 20:53 12-lead ECG Interpretation by ED physician and tours hostess : Underlying sinus rhythm with frequent episodes of narrow complex tachycardia, non-sustained, which appears to be atrial tachycardia at rate of 150. No acute ischemic changes. Also see rhythm strip which demonstrates dysrhythmias with more clarity. There also appears to be LVH with repolarization abnormality. No prior EKG available for comparison. Cardiac Echo Impressions Interpretation Summary 1) Moderately dilated left ventricle with mildly to moderately reduced systolic function (EF 40-45%). 2) Normal right ventricular size and function. 3) Severely dilated left atrium. 4) Posterior leaflet of the mitral valve is tethered and has very limited mobility. 5) Severe posteriorly directed mitral regurgitation appears to be present. 6) Aortic valve morphology not well seen but moderate eccentric aortic regurgitation is presentk. 7) No prior Echo available for comparison. Assessment & Plan Willie Cox is a 40-year-old Belarusian-speaking man who presents with to the ED with 3 days of heart racing and shortness of breath. He is admitted for further cardiac workup and management of his arrhythmia. Narrow complex tachycardia possibly atrial flutter, present on admission, Improved. Log Deck Tender, Dr. Snow, reviewed several EKGs and a lengthy rhythm strip with the ER physician, Dr. Daly. His arrythmia is likely secondary to severe mitral regurgitation per Dr. Snow. - Echocardiogram results as above - Monitor on telemetry. - After extensive discussion with cardiology instructional services specialist (Dr. Snow) will switch the patient back to diltiazem ER 120 mg BID, due to being uncontrolled on metoprolol tartrate 50 mg. Will also add lisinopril 5 mg. - Patient has follow up appointments scheduled with Dr. Napoles September 19 at 2 PM at the [facility], and with cardiology, Dr. Beltran, September 27 at 11 AM. - Upon discharge, it's important that if patient starts to have palpitations while working, he should immediately rest for 15-20 minutes. He should also stay hydrated and drink plenty of water. Aminotransferase elevation, present on admission, unknown chronicity, resolved Patient denies any history of hepatitis or other liver pathology. Patient does admit to drinking alcohol socially would not in excess. - Possible need for outpatient workup. Disposition: Likely discharge tomorrow depending on patient heart rhythm and clinical status. We will assess how effective diltiazem works for his arrythmia. GI Prophylaxis: Not indicated VTE Prophylaxis: Sub-Q Heparin (Unfractionated), SCDs Resuscitation Status: CPR: Attempt Resuscitation Attending Statement The patient was seen and examined together with Dr. Anthony on 09/12/16 and I have added additional information to the note above. Vic Anthony DO Sep 12, 2016 18:09 Tessie Antoine DO Sep 13, 2016 15:20
[2016-09-13 00:05] VITALS: BP 105/63; PULSE 66; RESP 20; O2SAT 97
[2016-09-13] MEDS: Heparin 5,000 Unit/mL Inj SUBQ SCH ×2 (00:05→09:14)
[2016-09-13 03:37] VITALS: PULSE 66
[2016-09-13 05:33] VITALS: BP 105/66; PULSE 61; RESP 20; O2SAT 96
--- NOTE | 2016-09-13 05:52 | NUR ---
Cardiac Pt HR 140's to 170's at start of shift, Administered 5mg Lisinopril as well as 120 Diltiazem PO and effective. Pt HR now SR in the 60's. no c/o CP or SOB.
[2016-09-13 07:59] VITALS: BP 94/47; PULSE 68; RESP 14; O2SAT 94
[2016-09-13 08:00] VITALS: PULSE 66
--- NOTE | 2016-09-13 08:02 | NUR ---
BP Timothy kearney hospitalist r/t BP 94/57, pulse 57, 68, 71. per hospitalist ambulate and recheck blood pressures and notify hospitalist the pressures. Will follow.
--- NOTE | 2016-09-13 08:16 | NUR ---
BP Timothy kearney hospitalist per orders r/t BP 109/62 and pulse 57 after ambulation. awaiting orders.
[2016-09-13] MEDS ORDERED: Diltiazem CD 120 mg ER24 Capsule PO SCH ×3 (08:30)
--- NOTE | 2016-09-13 10:09 | NUR ---
SVT per Tele java j2ee technical lead called r/t SVT at 0959 and stayed for 2 minutes. per patient no chest pain but palpitations. Notified Dr. Lepe and aware. no new orders recieved. BP 121/69, pulse 65.
[2016-09-13 12:27] VITALS: BP 121/66; PULSE 61; RESP 20; O2SAT 98
--- NOTE | 2016-09-13 14:17 | NUR ---
Ambulation Patient ambulated in the beatty way or 2 laps with no signs of respiratory distress. Denies chest pain or chest discomfort. no reports of palpitations. Dr. Antoine and Dr. Lepe aware. BP 108/63, pulse 58. per tele Heart rate has been 70's and currently 55.
[2016-09-13] MEDS ORDERED: DILT120C83 PO (14:36)
--- NOTE | 2016-09-13 15:05 | NUR ---
Social Work: Multidisciplinary Rounds/Discharge D: Pt discussed in am rounds with MD team. Pt is being discharged home today. MD and team identify no social work needs or concerns regarding pt's capacity for self care. DIPLOMATIC OFFICER has provided the pt with a Mongolian copy of the [facility] application. Pt is eligible for [facility] medicaid and [facility] has been following to help the pt apply for this. MD is trying to discharge pt using the $4 medication list however this might not be possible. MD will reference [facility] to determine a cost-effective medication for discharge. DIPLOMATIC OFFICER met with the patient at bedside to assess for unmet needs and confirm discharge plan. Pt expresses that he has no concerns about discharge home. Family will transport. Pt's follow up appointments have been provided to the patient. Primary Care Physician: Dr. Napoles September 19 at 2 PM at the [facility] Cardiology, Dr. Beltran, September 27 at 11 AM. A: Pt who is I at baseline and has been ambulating I during admission. P: Pt to discharge home with no sw needs. NELLY Bear
--- NOTE | 2016-09-13 15:27 | NUR ---
Discharge New orders for discharge home and patient agrees. Stable vital signs and Deneis any cardiac discomfort or chest pain. No reports of respiratory distress. Called waistline joiner lockstitch and at bed side. Reviewed discharge paper work, discharge instructions, 2 new prescriptions, and scheduled follow up appointments with Dr. Beltran and Dr. Napoles. Patient understood discharge instructions with explaination in mongolian by waistline joiner lockstitch. Care notes provided r/t 2 new prescriptions in mongolian. Discharging hospitalist aware that patient driving home himself. patient left unit approx. 1532 via walking accompained via nursing staff.
--- NOTE | 2016-09-13 17:52 | PCM.DC.MED ---
Discharge Summary Date of Service Sep 13, 2016 Dates of Hospitalization Date of Hospital Admission Sep 09, 2016 at 22:58 Date of Discharge: Sep 13, 2016 Providers: Admitting Physician: Lindsay Bailey DO Primary Care Physician: Ameya Attending Physician: Tessie Antoine DO Turn Out Worker: Shekhar Anthony Diagnosis at Time of Discharge Diagnosis at Time of Discharge Narrow complex tachycardia possibly atrial flutter Aminotransferase elevation Consultations Cardiology Procedures XRay, CTs & MRIs X-RAY CHEST ONE VIEW, PORTABLE ([id number]) IMPRESSION: No acute pulmonary process. Dictated by: Nava Marrero M.D. on 09/09/2016 at 20:53 Approved by: Nava Marrero M.D. on 09/09/2016 at 20:53 ECG 12 Lead Interpretation by ED physician and filter press tender head : Underlying sinus rhythm with frequent episodes of narrow complex tachycardia, non-sustained, which appears to be atrial tachycardia at rate of 150. No acute ischemic changes. Also see rhythm strip which demonstrates dysrhythmias with more clarity. There also appears to be LVH with repolarization abnormality. No prior EKG available for comparison. Cardiac Echo Impression Interpretation Summary 1) Moderately dilated left ventricle with mildly to moderately reduced systolic function (EF 40-45%). 2) Normal right ventricular size and function. 3) Severely dilated left atrium. 4) Posterior leaflet of the mitral valve is tethered and has very limited mobility. 5) Severe posteriorly directed mitral regurgitation appears to be present. 6) Aortic valve morphology not well seen but moderate eccentric aortic regurgitation is presentk. 7) No prior Echo available for comparison. Brief History Willie Cox is a 40-year-old Albanian-speaking gentleman with, no known past medical history, who presented to the ED with 3 days of heart racing and shortness of breath found to have frequent narrow complex tachycardia on EKG. Treatment was started with metoprolol in the ED with no relief, but cardizem did help. He converted back into normal sinus rhythm and was admitted to the hospital for monitoring. An Echocardiogram was obtained with results as above, but most notably a very severe mitral regurgitation was seen. From that point and throughout most of his hospital stay, we had a continuous parish in determining what medication was best for him. Each day, he would have frequent PVC's, which would then eventually turn into frequent SVT. We tried Atenolol, metoprolol + lisinopril and adjusting doses through cardiology recommendations, which was found to be ineffective. Eventually Dr. Snow recommended going back to diltiazem ER 120 mg BID with lisinopril 5 mg to help reduce the afterload to help his arrythmia and this finally seemed to be the solution. The thought is that he has very severe mitral regurgitation, which is the actual culprit of his SVT, so helping to reduce the afterload will help with preventing SVT. He was discharged from the hospital stable without any arrythmia showing up with activity. He should have close cardiology follow up, which is actually scheduled with Dr. Beltran on September 27. There needs to be attention focused as to his mitral regurgitation and how to best approach it. Hospital Course Willie Cox is a 40-year-old Albanian-speaking man who presents with to the ED with 3 days of heart racing and shortness of breath. He is admitted for further cardiac workup. Hospital problem list outlined below Narrow complex tachycardia possibly atrial flutter, present on admission, Improved. Education Department Chair, Dr. Snow, reviewed several EKGs and a lengthy rhythm strip with the ER physician, Dr. Daly. His arrythmia is likely secondary to severe mitral regurgitation per Dr. Snow. - Echocardiogram results as above - After extensive discussion with cardiology inventory management specialist (Dr. Snow) will switch the patient back to diltiazem ER 120 mg BID, due to being uncontrolled on metoprolol tartrate 50 mg. Will also add lisinopril 5 mg. - Patient has follow up appointments scheduled with Dr. Napoles September 19 at 2 PM at the [facility], and with cardiology, Dr. Beltran, September 27 at 11 AM. - Upon discharge, it's important that if patient starts to have palpitations while working, he should immediately rest for 15-20 minutes. He should also stay hydrated and drink plenty of water. Aminotransferase elevation, present on admission, unknown chronicity, resolved Patient denies any history of hepatitis or other liver pathology. Patient does admit to drinking alcohol socially but not in excess. - Possible need for outpatient workup. Exam Vital Signs (Last) Date Time Temp Pulse Resp B/P Pulse Ox O2 Delivery O2 Flow Rate FiO2 09/13/16 12:27 36.5 61 20 121/66 98 Room Air 09/09/16 23:57 2 Exam General: No acute distress, well-developed, well-nourished, appropriately interactive HEENT: Normocephalic, atraumatic. External ears without defect. Anicteric sclerae, moist conjunctivae. Neck: Supple with full range of motion. No jugular venous distension. No bruits. No lymphadenopathy or thyromegaly. Cardiovascular: Regular rate and rhythm with significant blowing systolic murmur heard best at the apex Pulmonary: Clear to auscultation bilaterally with no crackles, wheezes, or rhonchi. Normal respiratory effort with no use of accessory muscles. Abdomen: Bowel tones present. Soft, nontender, nondistended. Extremities: No clubbing, cyanosis, edema, or lymphadenopathy appreciated. Skin: Normal temperature, turgor, and texture; no rash, ulcers, or subcutaneous nodules appreciated. Neurological: Cranial nerves grossly intact. Normal muscle strength, tone, and bulk. Reflexes, coordination, and sensory function within normal limits. Psychiatric: Normal mood and affect. Alert and oriented to person, place, and time. Test 09/09/16 21:00 09/10/16 01:45 09/10/16 04:50 09/11/16 04:05 Neutrophils (%) (Auto) 70.5% (40-74) Lymphocytes (%) (Auto) 17.4% (14-46) Monocytes (%) (Auto) 9.9% (4-12) Eosinophils (%) (Auto) 1.7% (0-5) Basophils (%) (Auto) 0.4% (0-3) Magnesium Level 2.0mg/dL (1.6-2.6) Thyroid Stimulating Hormone (TSH) 4.500uIU/mL (0.450-4.500) Hold Gomez Top Tube Received (Received) Urine Color Yellow (YELLOW) Urine Appearance Clear (CLEAR,HAZY) Urine pH 6.5 (5.0-8.0) Urine Specific Maxwell 1.020 (1.003-1.035) Urine Protein Tracemg/dL (NEG,TRACE) Urine Glucose (UA) Negativemg/dL (NEGATIVE) Urine Ketones Negativemg/dL (NEGATIVE) Urine Occult Blood Negative (NEGATIVE) Urine Nitrite Negative (NEGATIVE) Urine Bilirubin Negative (NEGATIVE) Urine Urobilinogen Normalmg/dL (NORMAL) Urine Leukocyte Esterase Negative (NEGATIVE) Urine RBC 0-2/hpf (0-2) Urine WBC 0-5/hpf (0-5) Urine Epithelial Cells Occasional/hpf (NONE-MOD) Urine Crystals None seen (NONE SEEN) Urine Bacteria None/hpf (NONE-FEW) Urine Hyaline Casts None/lpf (NONE) Urine Granular Casts None seen (NONE SEEN) Urine Waxy Casts None seen (NONE SEEN) Urine Red Blood Cell Casts None seen (NONE SEEN) Urine White Blood Cell Casts None seen (NONE SEEN) Urine Mucus Present (None Seen) Urine Trichomonas None seen (NONE SEEN) Urine Yeast None (NONE SEEN) Urinalysis Comment None Urine Culture Reflexed Not indicated Troponin T 0.010ug/L (0.0-0.011) White Blood Count 8.8th/mm3 (3.8-10.1) Red Blood Count 5.09mil/mm3 (4.40-5.80) Mean Corpuscular Volume 89.0fL (81-100) Mean Corpuscular Hemoglobin 31.0pg (27.0-35.0) Mean Corpuscular Hemoglobin Concent 34.9% (32.0-37.0) Red Cell Distribution Width 13.5% (12.3-15.4) Platelet Count 164bil/L (150-400) Total Bilirubin 0.9mg/dL (0.0-1.2) Aspartate Amino Transf (AST/SGOT) 26U/L (0-50) Alanine Aminotransferase (ALT/SGPT) 32U/L (0-44) Alkaline Phosphatase 59U/L (25-150) Total Protein 6.3g/dL (6.4-8.4) Albumin 3.6g/dL (3.4-5.0) Test 09/13/16 04:15 Hemoglobin 15.5g/dL (13.8-17.2) Hematocrit 43.9% (41.0-50.0) Sodium Level 140mEq/L (134-144) Potassium Level 3.9mEq/L (3.5-5.2) Chloride Level 106mEq/L (97-108) Carbon Dioxide Level 20mmol/L (18-29) Blood Urea Nitrogen 26mg/dL (6-24) Creatinine 0.90mg/dL (0.76-1.27) Estimat Glomerular Filtration Rate 99mL/min (>59) Glucose Level 96mg/dL (60-99) Calcium Level 9.3mg/dL (8.5-10.1) Discharge Medications Discharge Medications Diltiazem ER (Cardizem CD) 120 Mg Cap.er.24h 120 MG PO BID Prescribed by: SHEKHAR ANTHONY Lisinopril (Lisinopril) 5 Mg Tablet 5 MG PO DAILY Prescribed by: SHEKHAR ANTHONY, Additional med instructions Diltiazem and Cardizem are the same medication just under a different name Diltiazem y Cardizem son medicamentos iguales. Aveces usa el nombre Diltiazem y otras veces usas el nombre Cardizem greg son excatamente lo mismo medicamento. Followup Plan Discharge Diet: No restrictions Discharge Activity: Other (If you feel any heart pains or palpiations then please rest for 15min if the pain or palpiations do not become less then please return to the hospital immediately. Si sientas dolor en el pecho o palpitaciones porfavor blossom un descanzo por 15 minutos. Si el dolor o palpitaciones continua porfavor regresa a la mikel de emeregencia inmediatamente) Patient Instructions New Medications Diltiazem ER 120 mg twice per day until reviewed by your filter press tender head Lisinopril 5 mg once per day until reviewed by your filter press tender head Follow up appointments have been scheduled Primary Care Physician: Dr. Napoles September 19 at 2 PM at the [facility] Cardiology, Dr. Beltran, September 27 at 11 AM. You will need to get your blood drawn by Dr. Napoles a REY to make sure kidney is fine on new medications If you start to have palpitations or feel like your heart is racing while working, you should immediately rest for 15-20 minutes. Also try to stay hydrated and drink plenty of water. Try and avoid spicy foods. Follow-up Provider: Marcello Napoles DO Follow-up with PCP in: 1 week Provider: Ivan Beltran MD Follow-up in: 2 weeks Time spent Greater than 35 minutes Attending Statement The patient was seen and examined together with Dr. Anthony on 09/13/16 and I have added additional information to the note above. copies to: Marcello Napoles DO; Ivan Beltran MD, Malik A DO Sep 13, 2016 17:52 Tessie Antoine DO Sep 13, 2016 18:20
== END 2016-09-13 15:32 | disposition home or self-care (01) | DRG 310 ==
LOC: SED 19:24 → PCC 22:58 → OBSVTOIN 22:58 → PCC 23:57
PROVIDERS: ADMIT Internal Medicine; ATTEND Internal Medicine
DX: I47.1 Supraventricular tachycardia (principal); R74.0 Nonspecific elevation of levels of transaminase and lactic acid dehydrogenase [LDH]